=== PATIENT | male | born 1960 | race Caucasian/White ===

== ENCOUNTER 2021-08-20 20:38 | Observation (INO) | payer OTHER, SELFPAY ==
[2021-08-20] VITALS (23 sets, daily range): BP systolic 133–169; BP diastolic 88–115; PULSE 44–55; RESP 12–19; TEMP 35.9; O2SAT 97–100
--- NOTE | ~2021-08-20 | XR_ITS ---
EXAMINATION: XR chest 2V DATE: 08/20/2021 21:10 INDICATION: Chest pressure. TECHNIQUE: Frontal and lateral views of the chest were obtained. COMPARISON: None. FINDINGS: There is mild atelectasis in left lower lung zone. No pleural effusion or pneumothorax. The heart size is normal. IMPRESSION: 1. Mild atelectasis in left lower lung zone. Reviewed, dictated and finalized at location A. ING CONSULTANT
--- NOTE | ~2021-08-20 | NM_ITS ---
EXAMINATION: NM ryan stress w perfusion DATE: 08/22/2021 10:13 INDICATION: Chest pain. TECHNIQUE: Rest images were obtained following intravenous administration of 10.8 mCi Tc99m tetrofosm in (Myoview). The patient was infused intravenously with Lexiscan (regadenoson). Then, 33 mCi Tc99m t etrofosmin (Myoview) was administered intravenously, and stress images were obtained. Data was recons tructed into short axis and horizontal and vertical long axis SPECT images. Gated SPECT images were a lso obtained. COMPARISON: None. FINDINGS: There is no definite reversible or fixed perfusion abnormality to suggest ischemia or infar ction. There is no segmental wall motion abnormality. Left ventricular ejection fraction measures 6 9%. IMPRESSION: 1. No definite ischemia or infarct. 2. Normal left ventricular ejection fraction measuring 69%. Reviewed, dictated and finalized at location A. CIATE PROFESSOR OF RADIOLOGY
--- NOTE | 2021-08-20 20:40 | ECG_ITS ---
Measurements Intervals [place] Rate: 46 P: 38 [place]: 163 QRS: 49 QRSD: 101 T: 26 QT: 454 QTc: 398 Interpretive Statements SINUS BRADYCARDIA BASELINE ARTIFACT- I, III, AVR, AVL, AVF ABNORMAL ECG Electronically Signed On 08-21-2021 8:45:46 FELT WASHING MACHINE TENDER by Steven Hinkle D.O.
[2021-08-20 21:09] LABS: Basophils Absolute Auto 0.1 K/mm3 (0.0-0.1); Basophils Percent Auto 0.8 % (0.2-1.2); Eosinophils Absolute Auto 0.5 K/mm3 (0-0.3); Eosinophils Percent Auto 7.3 % (0-4.4); Hematocrit 41.6 % (42.0-52.0); Hemoglobin 14.6 g/dL (14.0-18.0); Immature Granulocyte Absolute 0.02 K/mm3 (0.00-0.031); Immature Granulocyte Percent A 0.3 % (0-0.5); Lymphocytes Absolute Auto 1.76 K/mm3 (0.9-3.2); Lymphocytes Percent Auto 28.6 % (18.3-44.2); Mean Corpuscular HGB Conc 35.1 g/dl (32-36); Mean Corpuscular Hemoglobin 31.9 pg (26-34); Mean Corpuscular Volume 90.8 fl (80-100); Monocytes Absolute Auto 0.5 K/mm3 (0.1-0.6); Monocytes Percent Auto 8.6 % (2.6-8.5); Neutrophils Absolute Auto 3.3 K/mm3 (1.3-6.7); Neutrophils Percent Auto 54.4 % (45.5-73.1); Platelet Count Result 278 k/mm3 (150-375); Red Blood Count 4.58 M/mm3 (4.6-6.20); Red Cell Distribution Width 12.2 % (11.5-14.5); White Blood Count 6.2 K/mm3 (4.5-10.0)
[2021-08-20 21:18] LABS: Anion Gap 7 mmol/L (8-16); Blood Urea Nitrogen 13 mg/dL (9-20); Carbon Dioxide 29 mmol/L (22-30); Chloride 103 mmol/L (98-107); Estimated CRCL calculation 77 ml/min; Estimated Glomerular Filt Rate > 60; Glucose 143 mg/dL (65-110); Potassium 3.9 mmol/L (3.4-5.0); Sodium 139 mmol/L (137-145)
[2021-08-20 21:19] LABS: INR 1.2; Prothrombin Time 14.9 Seconds (11.1-14.7)
[2021-08-20 21:20] LABS: Partial Thromboplastin Time 33.6 SECONDS (22.3-36.8)
[2021-08-20 21:31] LABS: Troponin I < 0.012 ng/mL (0.000-0.034)
--- NOTE | 2021-08-20 21:36 | ED.CHESTPAIN ---
HPI - Chest Pain General Chief Complaint: Chest Pain Stated Complaint: htn, chest pressure Time Seen by Provider: 08/20/21 21:31 Source: RN notes reviewed History of Present Illness HPI narrative: Patient presents emergency department from home for chest pain. Patient states he been have intermittent chest pain over the left side of the chest that radiates into the left lateral chest described as a pressure states episodes can last from several minutes up to an hour denies any radiation of the pain denies any shortness of breath. Denies any fevers or chills.pain nausea vomiting patient does note that his blood pressures been elevated over the past several days states he does take blood pressure medication states nothing seems to make the pain better or worse denies any current chest pain. Patient states he was recently started on Eliquis after having a episode of atrial fibrillation and recently began following Dr. briones Related Data Allergies Allergy/AdvReac Type Severity Reaction Status Date / Time No Known Allergies Allergy Verified 08/20/21 21:32 Review of Systems Review of Systems: Gen.: Denies fevers or chills ENT: Denies congestion Respiratory: Denies shortness of breath or cough CV: See HPI GI: Denies abdominal pain nausea, emesis or diarrhea denies burning, urgency, frequency or hematuria Musculoskeletal: Denies back pain or muscle pain Neuro: Denies numbness, tingling, weakness or focal weakness Skin: Denies rash Except as documented, all other systems reviewed and negative [facility] Past Medical History Medical History (Updated 08/20/21 @ 22:06 by Jesus Tovar DO) Hypercholesterolemia Hypertension Social History Social History (Updated 08/20/21 @ 21:39 by Jesus Tovar DO) Smoking status: Never smoker Exam Narrative: APPEARANCE: No acute distress, nontoxic, resting in bed EYES: EOMI HEENT: Normocephalic, atraumatic, OMM RESPIRATORY: No respiratory distress Clear to auscultation bilaterally with no rhonchi wheezing or rales. CARDIOVASCULAR: Regular rate and rhythm without murmurs rubs or gallops. ABDOMINAL: Soft, nontender, nondistended, no rebound or guarding MUSCULOSKELETAl: Moves all extremities. No clubbing, cyanosis or edema. NEURO: Awake and alert. Following commands, speech normal, no focal deficits SKIN:: Warm, dry. No rashes lesions or abrasions PSYCHIATRIC: Normal affect/mood, Course Course Emergency Course: Concern Dr. Shaw presentation work-up agrees with admission at this time to his service Discussed with patient and family results of workup and diagnosis. Discussed need for admission. Patient and family understand and agree to current treatment plan Vital Signs Vital signs: Vital Signs Temperature 96.7 F L 08/20/21 20:41 Pulse Rate 49 L 08/20/21 20:41 Respiratory Rate 18 08/20/21 20:41 Blood Pressure 169/94 H 08/20/21 20:41 Pulse Oximetry 99 08/20/21 20:41 Temperature 96.7 F L 08/20/21 20:41 Pulse Rate 44 L 08/20/21 21:31 Respiratory Rate 16 08/20/21 21:31 Blood Pressure 153/96 H 08/20/21 21:31 Pulse Oximetry 99 08/20/21 21:31 MDM - Chest Pain Lab Data Result diagrams: 08/20/21 21:03 08/20/21 21:01 Labs: Lab Results 08/20/21 08/20/21 08/20/21 Range/Units 21:01 21:01 21:03 WBC 6.2 (4.5-10.0) K/mm3 RBC 4.58 L (4.6-6.20) M/mm3 Hgb 14.6 (14.0-18.0) g/dL Hct 41.6 L (42.0-52.0) % MCV 90.8 (80-100) fl MCH 31.9 (26-34) pg MCHC 35.1 (32-36) g/dl RDW 12.2 (11.5-14.5) % Plt Count 278 (150-375) k/mm3 MPV 9.0 (7.4-10.4) fl Immature Gran % (Auto) 0.3 (0-0.5) % Neut % (Auto) 54.4 (45.5-73.1) % Lymph % (Auto) 28.6 (18.3-44.2) % [place] % (Auto) 8.6 H (2.6-8.5) % Eos % (Auto) 7.3 H (0-4.4) % Baso % (Auto) 0.8 (0.2-1.2) % Lymph # (Auto) 1.76 (0.9-3.2) K/mm3 [place] # (Auto) 0.5 (0.1-0.6) K/mm3 Eos # (Auto) 0.5 H (0-0
[2021-08-20] MEDS: ASPIRIN 81 MG CHEWABLE TABLET 324 MG PO (22:07)
[2021-08-20 22:40] LABS: Cholesterol 121 mg/dL (0-200); HDL Direct 30 mg/dL; Triglycerides 210 mg/dL (<150)
[2021-08-20 22:50] LABS: LDL Cholesterol Direct 63 mg/dL
[2021-08-20 23:56] LABS: Troponin I < 0.012 ng/mL (0.000-0.034)
[2021-08-21] VITALS (22 sets, daily range): BP systolic 125–149; BP diastolic 72–97; PULSE 38–97; RESP 12–20; TEMP 36.3–36.7; O2SAT 91–100; BMI 29.0
--- NOTE | 2021-08-21 02:13 | ADMGEN ---
This patient, Shaun Young, was admitted to IMU Room 211-01. Patient/family oriented to hospital policies and general routines including ID bracelet, bed and alarms, visiting hours, pain management, procedures, bathroom and other care routines, personal items, smoking policy, room service/diet, and visiting hours. Information on how to activate the Rapid Response Team has been discussed. Patient/Family are encouraged to report perceived risks to care and to ask questions if they do not understand what they are told or what they should do.
[2021-08-21 03:26] LABS: Troponin I < 0.012 ng/mL (0.000-0.034)
--- NOTE | 2021-08-21 04:03 | ECG_ITS ---
Measurements Intervals [place] Rate: 48 P: 37 [place]: 170 QRS: 59 QRSD: 92 T: 41 QT: 465 QTc: 416 Interpretive Statements SINUS BRADYCARDIA BASELINE ARTIFACT- I, III, AVL, AVF, V2 ABNORMAL ECG Electronically Signed On 08-21-2021 12:48:43 OCCUPATIONAL [employer]ALTH RN by Steven Hinkle D.O.
[2021-08-21] MEDS: ASPIRIN 81 MG CHEWABLE TABLET PO (08:19)
[2021-08-21] MEDS: carvediloL 12.5 MG TABLET PO ×2 (10:35→16:24)
[2021-08-21] MEDS: ROSUVASTATIN 10 MG TABLET 20 MG PO (10:36)
[2021-08-21] MEDS: ramipriL 5 MG CAPSULE PO (10:36)
--- NOTE | 2021-08-21 15:34 | PM.IMHP ---
H&P: HPI History of Present Illness Date/Time: 08/21/21 15:34 Chief Complaint: Chest discomfort Narrative: This is a 61-year-old man who came into the emergency room yesterday and was admitted with some symptoms of chest discomfort which have been going on for several days prior to coming into the hospital. The patient is not known to have any coronary artery disease states that for 2-3 days he has been having episodes that he calls a unusual sensation in the left upper anterior chest wall and this region of the left shoulder he does not describe this as any sort of severe pain but sometimes some mild pressure-like sensation. The symptoms will wax and wane and usually resolve after about 10-15 minutes. Patient was not in any other distress he is not noticing any predictable exertional symptoms of any kind. He leads an active lifestyle but at the moment does not exercise regularly. He previously played tennis but could tailed that within the last couple of years as he had knee replacement surgery performed. He had these sorts of symptoms recently and was seen in the emergency department at [facility] in apparently was found to be in atrial fibrillation. He is not aware of that he did not specifically notice irregularity was heart rate or palpitations. Because of that documentation he was placed on anticoagulation with apixaban and referred to see my partner, Dr. Zhao in consultation. He was seen in the office as a new patient on 08/02/2021 he was scheduled to have an echocardiogram done in the office which is on the schedule for later this week and then to follow up with my partner in the office. His medical regimen consists of apixaban, carvedilol ramipril and rosuvastatin. The patient recently moved to this area from [facility] to be with family in his long term. He states that his physician in [place] a couple of years ago conducted a workup including an echocardiogram as well as a stress test. He can not really recall the reason for that evaluation being done. He does not remember having any chest pain at that time. Other than hypertension he has been enjoying fairly good health. Review of Systems Review of Systems: ROS unobtainable: Yes unobtainable due to medical condition Constitutional: Constitutional: Reports no additional constitutional complaints Eyes: Eyes: Reports no additional eye complaints ENT: Reports system reviewed and no additional complaints, except as documented Cardiovascular: Cardiovascular: Reports as per HPI Respiratory: Respiratory: Reports no additional respiratory complaints Gastrointestinal: Gastrointestinal: Reports no additional gastrointestinal complaints Musculoskeletal: Musculoskeletal: Reports no additional musculoskeletal complaints Integumentary/Breasts: Skin/Breast: Reports system reviewed and no additional complaints, except as docu Neurologic: Reports system reviewed and no additional complaints, except as documented Psychiatric: Psychiatric: Reports no additional psychiatric complaints [facility] Past Medical History Medical History (Updated 08/20/21 @ 22:06 by Jesus Tovar DO) Hypercholesterolemia Hypertension Social History Social History (Updated 08/20/21 @ 21:39 by Jesus Tovar DO) Smoking packs per day: 1 Smoking cigarettes per day: 20.0 Years smoked: 25 Smoking pack-years: 25.00 Smoking status: Former smoker Tobacco type: cigarettes Alcohol intake: never Substance use: never Spiritual care concerns: No Meds Home Medications and Allergies Home Medications Medication Instructions Recorded Confirmed Type apixaban [Eliquis] 5 mg PO BID 08/20/21 08/21/21 History carvedilol 12.5 mg PO BID 08/20/21 08/21/21 History ramipril 5 mg PO DAILY 08/20/21 08/21/21 History rosuvastatin 20 mg PO DAILY 08/20/21 08/20/21 History Allergies Allergy/AdvReac Type Severity Reaction Status Date / Time No Known Allergies Allergy Verified 08/20/21 2
[2021-08-22] VITALS (8 sets, daily range): BP systolic 128–138; BP diastolic 81–89; PULSE 41–79; RESP 12–20; TEMP 36.4–36.7; O2SAT 97–99
--- NOTE | 2021-08-22 | EST_ITS ---
Patient Info Name: Shaun Yuong Age: 61 years : 1960 Gender: Male Ht: 73 in Wt: 220 lbs BSA: 2.29 m2 Exam Date: 08/22/2021 8:56 AM Exam Location: [facility] Stress Patient Status: Inpatient Admit Date: 08/20/2021 Staff Ordering Physician: Qasim Shaw MD Attending Provider: Qasim Shaw MD Exercise Technologist: Socorro Hewitt RDCS Exercise Physician: Kan Ortiz MD Exam Type: CA stress ryan w NM Study Info Indications R07.89 - Other chest pain A regadenoson stress test was performed. Summary 1. Nondiagnostic ST and T-wave abnormalities with Lexiscan which do not meet strict criteria ischemia especially given baseline ECG. 2. Please correlate with nuclear medicine images, reported separately. Protocol: Lexiscan Stress ECG Details Stage: REST Duration (min): 5 min : 48 sec HR (bpm): 51 SBP (mmHg): 139 DBP (mmHg): 92 Stage: REST Duration (min): 10 min : 3 sec HR (bpm): 53 SBP (mmHg): 139 DBP (mmHg): 92 Stage: STAGE 1 Duration (min): 1 min : 0 sec HR (bpm): 69 SBP (mmHg): 166 DBP (mmHg): 93 Stage: RECOVERY Duration (min): 1 min : 0 sec HR (bpm): 100 SBP (mmHg): 138 DBP (mmHg): 94 Stage: RECOVERY Duration (min): 2 min : 0 sec HR (bpm): 90 SBP (mmHg): 138 DBP (mmHg): 94 Stage: RECOVERY Duration (min): 3 min : 0 sec HR (bpm): 79 SBP (mmHg): 140 DBP (mmHg): 93 Stage: RECOVERY Duration (min): 3 min : 3 sec HR (bpm): 78 SBP (mmHg): 140 DBP (mmHg): 93 Rest HR: 53 bpm Peak HR: 100 bpm Rest Sys BP: 139 mmHg Peak Sys BP: 166 mmHg Max Pred HR: 159 bpm % Max Pred HR: 63 % Target HR: 135 bpm Max RPP: 16,600 bpm*mmHg Target HR Summary: Hemodynamic response to exercise was normal BP Response: Normal blood pressure response Termination Reason: Completed protocol Cardiac Symptoms: None Total Time: 1 min : 0 sec Rest Cm BP: 92 mmHg Peak Cm BP: 93 mmHg Total Dose: 0.4 mg Resting ECG Sinus bradycardia. ST abnormality, consider early repolarization. Stress ECG Nondiagnostic ST and T-wave abnormalities with Lexiscan which do not meet strict criteria ischemia especially given baseline ECG. Arrhythmias None. Report Signatures
[2021-08-22] MEDS: ROSUVASTATIN 10 MG TABLET 20 MG PO (10:36)
[2021-08-22] MEDS: carvediloL 12.5 MG TABLET PO (10:36)
[2021-08-22] MEDS: ramipriL 5 MG CAPSULE PO (10:36)
[2021-08-22] MEDS: ASPIRIN 81 MG CHEWABLE TABLET PO (10:36)
--- NOTE | 2021-08-22 11:42 | PM.DS ---
DS: Admitting Diagnosis Discharge Date 08/22/21 Admitting Diagnosis Chest pain DS: Discharge Diagnosis Discharge Diagnosis (1) Chest pain: Code(s): R07.9 - Chest pain, unspecified Status: Acute Assessment and Plan: Patient presented with chest discomfort that had been ongoing to several days prior to hospital presentation. He does not have a known history of coronary artery disease and according to the patient he has had an exercise stress test performed in the past that was negative according to the patient. Troponins were drawn and negative x3. EKG is normal. Lexiscan stress test was recommended and was performed this morning. MPI did not show any definite reversible or fixed perfusion abnormality to suggest ischemia or infarction. This is a patient follows with Dr. Aguillon. He can keep his regularly scheduled follow-up. (2) Hypercholesterolemia: Code(s): E78.00 - Pure hypercholesterolemia, unspecified Status: Acute Assessment and Plan: On rosuvastatin. (3) Hypertension: Code(s): I10 - Essential (primary) hypertension Status: Acute Assessment and Plan: He did have a few high readings but generally this is reasonably controlled. Continue ramipril, carvedilol (4) Atrial fibrillation: Code(s): I48.91 - Unspecified atrial fibrillation Status: Acute Assessment and Plan: Recent diagnosis of atrial fibrillation. He is in sinus rhythm now. On apixaban for anticoagulation. DS: Summary Hospital Course Hospital Course: Patient presented with chest discomfort that had been ongoing to several days prior to hospital presentation. He does not have a known history of coronary artery disease and according to the patient he has had an exercise stress test performed in the past that was negative according to the patient. Troponins were drawn and negative x3. EKG is normal. Lexiscan stress test was recommended and was performed this morning. MPI did not show any definite reversible or fixed perfusion abnormality to suggest ischemia or infarction. This is a patient follows with Dr. Aguillon. He can keep his regularly scheduled follow-up. Time Spent with Patient Time attestation: Total time spent providing and/or coordinating discharge services: Time spent: Greater than 30 minutes Exam Const: General: comfortable and no acute distress Other: Pleasant gentleman appearing his stated age comfortable cooperative no distress HENMT: Mouth: Yes moist mucous membranes Eyes: Sclera: sclerae normal Pupils: Equal, round and reactive pupils present Neck: Neck: supple and no JVD Resp: Effort & Inspection: normal respiratory effort Auscultation: clear to auscultation bilaterally Cardio: Rate: regular rate Rhythm: regular rhythm GI: Auscultation: normal bowel sounds Skin: General skin exam: normal color Neuro: Cranial nerves: Yes Equal, round and reactive pupils present Cognition (Neuro): normal cognition Extrem: General: normal to inspection DS: Data Data Completed and Pending Completed studies during hospitalization: Lexiscan stress test 08/22/2021 FINDINGS: There is no definite reversible or fixed perfusion abnormality to suggest ischemia or infarction. There is no segmental wall motion abnormality. Left ventricular ejection fraction measures 69%. IMPRESSION: 1. No definite ischemia or infarct. 2. Normal left ventricular ejection fraction measuring 69%. Discharge Plan Discharge Attending physician on discharge: Kan Ortiz Consulting providers: Kilo Snyder Discharging Clinician: Diana Maria Patient Disposition: Home, Self-Care Activity: may shower Diet: heart healthy Patient Instructions: Antibiotic Form, Apixaban (By mouth), Chest Pain (DC) Stand Alone Forms: General Discharge Information Follow-up/Referrals: Slick Aguillon MD [Physician] - Keep Reg. Scheduled Appt. Discharge Medications: Continued carv
== END 2021-08-22 14:06 | disposition home or self-care (01) ==
LOC: ANHED 22:06 → ANHIMU 08-21 00:46
PROVIDERS: Admitting Provider Specialist; Emergency Provider Emergency Medicine; PCP Internal Medicine; Visit Provider Specialist
DX: R07.9 Chest pain, unspecified (principal); I10 Essential (primary) hypertension; E78.00 Pure hypercholesterolemia, unspecified; I48.91 Unspecified atrial fibrillation; Z87.891 Personal history of nicotine dependence; Z79.01 Long term (current) use of anticoagulants
CPT/HCPCS: 36415; 71046; 78452; 80048; 80061; 84484; 85025; 85610; 85730; 93005; 93017; 99285; A9270; A9502; G0378; J2785

== ENCOUNTER 2021-09-10 20:43 | Emergency (ER) | payer OTHER, SELFPAY ==
[2021-09-10] VITALS (13 sets, daily range): BP systolic 139–159; BP diastolic 89–107; PULSE 52–71; RESP 12–22; TEMP 36.1; O2SAT 96–99
--- NOTE | ~2021-09-10 | XR_ITS ---
EXAMINATION: XR chest 2V DATE: 09/10/2021 22:18 INDICATION: Chest tightness. Dizziness. TECHNIQUE: Frontal and lateral views of the chest were obtained. COMPARISON: Chest 2 views 08/20/2021 FINDINGS: There is mild atelectasis in the lower lung zones. No pleural effusion or pneumothorax. If this is normal. IMPRESSION: 1. Mild atelectasis in the lower lung zones. Reviewed, dictated and finalized at location A. ITALIAN STYLE FOOD
--- NOTE | 2021-09-10 20:51 | ECG_ITS ---
Measurements Intervals [place] Rate: 54 P: 30 [place]: 176 QRS: 58 QRSD: 101 T: 51 QT: 417 QTc: 396 Interpretive Statements SINUS BRADYCARDIA BASELINE ARTIFACT- I, III, AVR, AVL BORDERLINE ECG Electronically Signed On 09-11-2021 5:32:06 DRYING MACHINE TENDER by Steven Hinkle D.O.
--- NOTE | 2021-09-10 23:20 | PC.NURSE ---
Report received from LYNN Dia. Assumed care of patient at this time.
[2021-09-10 23:23] LABS: Basophils Absolute Auto 0.1 K/mm3 (0.0-0.1); Basophils Percent Auto 0.7 % (0.2-1.2); Eosinophils Absolute Auto 0.4 K/mm3 (0-0.3); Eosinophils Percent Auto 5.2 % (0-4.4); Hematocrit 44.6 % (42.0-52.0); Hemoglobin 15.7 g/dL (14.0-18.0); Immature Granulocyte Absolute 0.03 K/mm3 (0.00-0.031); Immature Granulocyte Percent A 0.4 % (0-0.5); Lymphocytes Absolute Auto 1.44 K/mm3 (0.9-3.2); Mean Corpuscular HGB Conc 35.2 g/dl (32-36); Mean Corpuscular Volume 90.8 fl (80-100); Mean Platelet Volume 8.8 fl (7.4-10.4); Monocytes Absolute Auto 0.6 K/mm3 (0.1-0.6); Monocytes Percent Auto 8.3 % (2.6-8.5); Neutrophils Percent Auto 66.4 % (45.5-73.1); Platelet Count Result 254 k/mm3 (150-375); Red Blood Count 4.91 M/mm3 (4.6-6.20); Red Cell Distribution Width 12.6 % (11.5-14.5); White Blood Count 7.6 K/mm3 (4.5-10.0)
--- NOTE | 2021-09-10 23:28 | ED.DIZZY ---
HPI - Dizziness General Chief Complaint: Dizziness Stated Complaint: dizziness lightheaded hx of afib Time Seen by Provider: 09/10/21 21:52 Source: patient History of Present Illness HPI Narrative: Patient returns with multiple complaints. Patient ports he had difficulty controlling his blood pressure over the past 6 weeks as well as intermittent episodes of dizziness. He was seen at another ER for an episode of dizziness diagnosed with cardiology Dr Aguillon. Regarding his blood pressure he notes his blood pressure tends to be elevated in the morning improves after taking his meds patient is an in the late afternoon early evening when he typically takes his evening doses. Reports they recently change his his ramipril from the evening to the morning. Patient currently has an outpatient media monitor in place and turning his device 2 days for a complete assessment. This evening he had additional episode of dizziness. Reports he noted his blood pressure was elevated this evening so he took a dose of Ativan and went to bed. He reports his media monitor was alarming as it was not connected to receiving device he was attempting to fix it when he felt like the ground was off balance. His symptoms last seconds and now resolved. He denies any chest breath prior to the event he denies any focal numbness or weakness denies any recent fevers, cough, congestion Related Data Home Medications Medication Instructions Recorded Confirmed Eliquis 5 mg PO BID 08/20/21 08/21/21 carvedilol 12.5 mg PO BID 08/20/21 08/21/21 ramipril 5 mg PO DAILY 08/20/21 08/21/21 rosuvastatin 20 mg PO DAILY 08/20/21 08/20/21 Allergies Allergy/AdvReac Type Severity Reaction Status Date / Time No Known Allergies Allergy Verified 08/20/21 21:32 Review of Systems Review of Systems: CONSTITUTIONAL: Denies fever, chills, or sweats. EYES: Denies visual changes, redness, or discharge. ENT: Denies rhinorrhea, congestion, sore throat, or otalgia. CARDIOVASCULAR: Denies chest pain, palpitations, or edema. RESPIRATORY: Denies cough or dyspnea. GASTROINTESTINAL: Denies abdominal pain, nausea, vomiting, or diarrhea. GENITOURINARY: Denies dysuria or hematuria. SKIN: Denies rash or itching. MUSCULOSKELETAL: Denies back pain, joint pain, or myalgia. NEUROLOGIC: Denies headache, numbness, dizziness, or weakness. PSYCHIATRIC: Denies anxiety or depression. All systems reviewed & are unremarkable except as noted in HPI and below PMFSH Past Medical History Medical History Hypercholesterolemia Hypertension Social History Social History Smoking packs per day: 1 Smoking cigarettes per day: 20.0 Years smoked: 25 Smoking pack-years: 25.00 Smoking status: Former smoker Tobacco type: cigarettes Alcohol intake: never Substance use: never Spiritual care concerns: No Exam Narrative: GENERAL: Well-appearing, well-nourished, and in no acute distress. HEAD: Normocephalic, atraumatic. EYES: PERRLA and EOMI. ENT: Nares clear, no rhinorrhea or epistaxis. Mucous membranes moist. NECK: Supple. No masses. No JVD CHEST: Clear to auscultation. No respiratory distress. No wheezes rales or rhonchi HEART: Regular rate and rhythm. No murmur heard. Normal peripheral pulses. ABDOMEN: Soft, nontender, nondistended, normal active bowel sounds. EXTREMITIES: Normal range of motion. No edema. SKIN: Warm, dry, no rash. NEURO: Cranial nerves II through XII are intact patient has 5 out of 5 strength in all extremities sensation intact to light touch in all extremities alert and oriented x3. PSYCH: Normal mood and affect. Course Reevaluation(s) Reevaluation #1: Patient is resting comfortably continues to be asymptomatic. Results and plan reviewed with patient. Patient is comfortable with the outpatient plan. Date: 09/11/21 Time: 00:03 Vital Signs Vital signs: Vital S
[2021-09-10 23:33] LABS: Alanine Aminotransferase 28 U/L (4-50); Albumin Level 4.8 g/dL (3.5-5.1); Alkaline Phosphatase 100 U/L (38-126); Anion Gap 8 mmol/L (8-16); Aspartate Amino Transferase 31 U/L (17-59); Bilirubin,Total 0.7 mg/dL (0.2-1.3); Blood Urea Nitrogen 19 mg/dL (9-20); Calcium 9.7 mg/dL (8.4-10.2); Carbon Dioxide 30 mmol/L (22-30); Chloride 97 mmol/L (98-107); Estimated CRCL calculation 77 ml/min; Estimated Glomerular Filt Rate > 60; Glucose 119 mg/dL (65-110); Potassium 3.9 mmol/L (3.4-5.0); Sodium 135 mmol/L (137-145)
[2021-09-10 23:38] LABS: Add Urine Microscopic? YES; Appearance Urine Clear (Clear); Bilirubin Urine Negative (Negative); Blood Urine Negative (Negative); Color Urine Yellow (Yellow); Glucose Urine UA Negative (Negative); Ketones Urine Negative (Negative); Leukocyte Esterase Ur Negative LEU/UL (Negative); Mucus Urine Heavy /lpf; Nitrate Urine Negative (Negative); Protein Urine Negative (Negative); RBC Urine 0-2 /hpf (0-2); Specific Grav Ur 1.025 (1.001-1.035); Squamous Epithelial Cell Urine Rare /hpf (Few)
[2021-09-10 23:44] LABS: Troponin I < 0.012 ng/mL (0.000-0.034)
[2021-09-11 00:14] VITALS: BP 161/99; PULSE 54; RESP 15; TEMP 36.7; O2SAT 98
== END 2021-09-11 00:16 | disposition home or self-care (01) ==
PROVIDERS: Emergency Provider Emergency Medicine; PCP Internal Medicine
DX: R42 Dizziness and giddiness (principal); I10 Essential (primary) hypertension; E78.5 Hyperlipidemia, unspecified
CPT/HCPCS: 36415; 71046; 80053; 81001; 84484; 85025; 93005; 99284

== ENCOUNTER 2021-11-02 08:39 | Outpatient (CLI) | payer OTHER, SELFPAY ==
--- NOTE | ~2021-11-02 | US_ITS ---
EXAMINATION: US carotid duplex BI DATE: 11/02/2021 09:13 INDICATION: Dizziness TECHNIQUE: Grayscale, color Doppler, and pulsed Doppler images of the cervical carotid arteries were obtained. The degree of vessel stenosis is placed in one of the following categories: normal, <50%, 5 0-69%, >=70% but less than near-occlusion, near-occlusion, or total occlusion. Note that percent sten osis relative to normal distal artery lumen diameter is indirectly measured from velocity measurement s as described by Los, et al. Radiology 2003; 229:340-346. Notes: Normal: Peak systolic velocity <125 centimeters/sec and no plaque <50%. Peak systolic velocity <125 ( EDV <40; ICA/CCA PSV ratio <2.0; used these factors only a tandem lesions or low cardiac output or co ntralateral disease) 50-69 %: PSV 125-230 (EDV 40-100; ratio 2-4) >= 70% but less than near occlusion: PSV greater than 230 (EDV > 100; ratio> 4.0) Near Occlusion: PSV that is variable; markedly narrowed lumen Occlusion: Absent flow on color/spectral Doppler and no lumen on jim scale. COMPARISON: None. FINDINGS: RIGHT: The right common carotid artery (CCA) peak systolic velocity (PSV) is 90 cm/s. The right internal car otid artery (ICA) PSV is 60 cm/s. The right ICA end-diastolic velocity (EDV) is 25 cm/s. The right IC A/CCA PSV ratio is 0.7. The external carotid artery (ECA) PSV is 84 cm/s. There is antegrade flow in the right vertebral artery. LEFT: The left CCA PSV is 92 cm/s. The left ICA PSV is 57 cm/s. The left ICA EDV is 27 cm/s. The left ICA/C CA PSV ratio is 0.6. The ECA PSV is 76 cm/s. There is antegrade flow in the left vertebral artery. IMPRESSION: 1. Less than 50% stenosis in the right internal carotid artery by sonographic criteria. 2. Less than 50% stenosis in the left internal carotid artery by sonographic criteria. Reviewed, dictated and finalized at location B. RATOR LIGHTING FIXTURES IMPRESSION: 1. Less than 50% stenosis in the right internal carotid artery by sonographic jimbo olivarez. 2. Less than 50% stenosis in the left internal carotid artery by sonographic renata lunsford.
== END 2021-11-02 08:40 | disposition home or self-care (01) ==
PROVIDERS: PCP Internal Medicine; Visit Provider Internal Medicine Cardiovascular Disease
DX: I65.23 Occlusion and stenosis of bilateral carotid arteries (principal); R42 Dizziness and giddiness
CPT/HCPCS: 93880